=== PATIENT | male | born 1995 | race American Indian/Alaskan Native ===

== ENCOUNTER 2017-10-25 09:03 | Emergency (ER) | payer OTHER ==
[2017-10-25 10:25] VITALS: BP 128/82
[2017-10-25 10:55] LABS: Bilirubin,Urine NEG (Negative); Blood,Urine NEG (Negative); Color,Urine Yellow (Yellow); Mucus,Urine 2+ /HPF; Nitrite,Urine NEG (Negative); Protein,Urine <15 mg/dL mg/dL (Negative)
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
[2017-10-25] MEDS ORDERED: ROCEPHIN IM ONE (11:35)
[2017-10-25] MEDS ORDERED: XYLOCAINE 1% MPF 5 mL INFILTRATI ONE (11:35)
[2017-10-25] MEDS ORDERED: ZITHROMAX PO ONE (11:35)
== END 2017-10-25 12:13 | disposition home or self-care (01) ==
LOC: ED 09:03
DX: Z20.2 Contact with and (suspected) exposure to infections with a predominantly sexual mode of transmission (principal); F17.200 Nicotine dependence, unspecified, uncomplicated
CPT/HCPCS: 81001; 96372; 99282; J0696

== ENCOUNTER 2018-02-23 06:19 | Emergency (ER) | payer SELFPAY ==
[2018-02-23 06:56] VITALS: BP 140/80
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
[2018-02-23] MEDS ORDERED: XYLOCAINE 2% INFILTRATI ONE (08:37)
[2018-02-23] MEDS ORDERED: BOOSTRIX IM ONE (09:17)
== END 2018-02-23 09:56 | disposition home or self-care (01) ==
LOC: ED 06:19
DX: S61.411A Laceration without foreign body of right hand, initial encounter (principal); F17.200 Nicotine dependence, unspecified, uncomplicated; W22.8XXA Striking against or struck by other objects, initial encounter; Y93.89 Activity, other specified; Y92.89 Other specified places as the place of occurrence of the external cause; Y99.8 Other external cause status
CPT/HCPCS: 90471; 90715; 99283